=== PATIENT | female | born 1995 | race African-American/Black ===

== ENCOUNTER 2025-01-09 19:40 | Emergency (ER) | payer OTHER ==
--- NOTE | 2025-01-09 20:24 | ED ---
Lower Extremity Injury HPI - General Stated Complaint: 12 Weeks preg, Abd pain Time Seen by Provider: 01/09/25 19:55 Source: patient, RN notes reviewed - History of Present Illness Initial Comments: This is a 29-year-old female, [id number], presenting to the emergency department at 12 weeks gestation for complaint of a fall. Patient states that she was walking outside when she slipped in mud falling onto bilateral knees and onto her abdomen. She is complaining of bilateral knee pain in addition to abdominal pain. She is concerned that she is 12 weeks . She denies vaginal bleeding, hitting her head or loss conscious at the time of the fall. Has not taken any medications since the injury. - Related Data Allergies Allergy/AdvReac Type Severity Reaction Status Date / Time No Known Allergies Allergy Verified 01/09/25 20:24 Review of Systems ROS Statement: Those systems with pertinent positive or pertinent negative responses have been documented in the HPI. ROS Other: All systems not noted in ROS Statement are negative. General Exam General appearance: alert, in no apparent distress ENT exam: Present: normal exam, mucous membranes moist Respiratory exam: Present: normal lung sounds bilaterally. Absent: respiratory distress, wheezes, rales, rhonchi, stridor Cardiovascular Exam: Present: regular rate, normal rhythm, normal heart sounds. Absent: systolic murmur, diastolic murmur, rubs, gallop, clicks GI/Abdominal exam: Present: soft, tenderness (diffuse to deep palpation), normal bowel sounds. Absent: distended, guarding, rebound, rigid Extremities exam: Present: normal inspection, full ROM, normal capillary refill, other (bilateral knee tenderness with mild ecchymosis, no obvious deformity). Absent: tenderness, pedal edema, joint swelling, calf tenderness Back exam: Present: normal inspection Course Vital Signs 01/09/25 20:21 Temperature 99.1 F Pulse Rate 86 Respiratory 18 Rate Blood Pressure 168/73 O2 Sat by Pulse 100 Oximetry Medical Decision Making - Medical Decision Making Was pt. sent in by a medical professional or institution (ARYAN Huerta, [employer] P[employer] SUPERVISOR, urgent care, hospital, or halfway...) When possible be specific @ -No Did you speak to anyone other than the patient for history (EMS, parent, family, police, friend...)? What history was obtained from this source @ -No Did you review nursing and triage notes (agree or disagree)? Why? @ -I reviewed and agree with nursing and triage notes Were old charts reviewed (outside hosp., previous admission, EMS record, old EKG, old radiological studies, urgent care reports/EKG's, halfway records)? Report findings @ -No old charts were reviewed Differential Diagnosis (chest pain, altered mental status, abdominal pain women, abdominal pain men, vaginal bleeding, weakness, fever, dyspnea, syncope, headach e, dizziness, GI bleed, back pain, seizure, CVA, palpatations, mental health, musculoskeletal)? @ -Differential Abdominal Pain Women: Appendicitis, Cholecystitis, diverticulosis, ischemic bowel, pancreatitis, hepatitis, UTI, gastroenteritis, AAA, incarcerated hernia, bowel obstruction, constipation, inflammatory bowel, hepatitis, peptic ulcer disease, splenic infarction, perforated viscus, vulvitis, ovarian torsion, PID, kidney stone, placenta abruption, this is not meant to be an all-inclusive list EKG interpreted by me (3pts min.). @ -None X-rays interpreted by me (1pt min.). @ -X-ray of bilateral knees no acute pathology CT interpreted by me (1pt min.). @ -None done U/S interpreted by me (1pt. min.). @ -Transabdominal ultrasound completed revealing a single live intrauterine gestation with a age of 11 weeks 5 days, heart rate of 143, small subchorionic hemorrhage. What testing was considered but not performed or refused? (CT, X-rays, U/S, labs)? Why? @ -None What meds were considered but not given or refused? Why? @ -None Did you discuss the management of the patient with other professionals (professionals i.e. , PA, [employer] P[employer] SUPERVISOR, lab, RT, psych nurse, administrator social welfare, metal storage worker, teacher, real estate utilization officer, outpatient case manager)? Give summary @ -No Was smoking cessation discussed for >3mins.? @ -No Was critical care preformed (if so, how long)? @ -No Were there social determinants of health that impacted care today? How? (Homelessness, low income, unemployed, alcoholism, drug addiction, transportation, low edu. Level, literacy, decrease access to med. care, halfway, rehab)? @ -No Was there de-escalation of care discussed even if they declined (Discuss DNR or withdrawal of care, Hospice)? DNR status @ -No What co-morbidities impacted this encounter? (DM, HTN, Smoking, COPD, CAD, Cancer, CVA, ARF, Chemo, Hep., AIDS, mental health diagnosis, sleep apnea, morbid obesity)? @ -None Was patient admitted / discharged? Hospital course, mention meds given and route, prescriptions, significant lab abnormalities, going to OR and other pertinent info. @ -Discharge. 29-year-old female presents emergency department after a fall. Overall she is well-appearing in no signs acute distress. Noted to have ecchymosis over bilateral knees with no evidence of deformity. She is weightbearing. Abdominal exam markable for mild tenderness to palpation of deep abdomen. She is read with dose of Tylenol. X-ray is unremarkable. Transabdominal ultrasound remarkable for a intrauterine gestation with a age of 11 weeks 5 days and heart rate of 143. Patient is stable for discharge and supportive treatment discussed at bedside. Case discussed with Dr. Parrish Undiagnosed new problem with uncertain prognosis? @ -No Drug Therapy requiring intensive monitoring for toxicity (Heparin, Nitro, Insulin, Cardizem)? @ -No Were any procedures done? @ -No Diagnosis/symptom? @ -knee ecchymosis, abdominal pain after fall Acute, or Chronic, or Acute on Chronic? @ -acute Uncomplicated (without systemic symptoms) or Complicated (systemic symptoms)? @ -uncomplicated Side effects of treatment? @ -No Exacerbation, Progression, or Severe Exacerbation? @ -No Poses a threat to life or bodily function? How? (Chest pain, [place], [place], pneumonia, PE, COPD, DKA, ARF, appy, cholecystitis, CVA, Diverticulitis, Homicidal, Suicidal, threat to staff... and all critical care pts) @ -No Disposition Clinical Impression: Fall, Ecchymosis Disposition: HOME SELF-CARE Condition: Good Instructions (If sedation given, give patient instructions): Ecchymosis (ED) Additional Instructions: Please return to the Emergency Department if symptoms worsen or any other concerns. Is patient prescribed a controlled substance at d/c from ED?: No Referrals: Nonstaff,Physician [Primary Care Provider] - 1-2 days Time of Disposition: 22:26
[2025-01-09 20:49] VITALS: TEMP 99.1
[2025-01-09] MEDS: ACETAMINOPHEN TAB 325 MG TAB PO STA (21:18)
--- NOTE | 2025-01-09 21:22 | XR ---
EXAMINATION TYPE: XR knee complete bilateral DATE OF EXAM: 01/09/2025 8:58 PM COMPARISON: None CLINICAL INDICATION: Female, 29 years old with history of fall, pain; PHH, pain TECHNIQUE: XR knee complete bilateral 3 views submitted. FINDINGS: No evidence of any acute osseous pathology, soft tissue swelling, or joint effusion is no rachel. IMPRESSION: No acute osseous pathology. [facility], , 01/09/2025 9:20 PM
--- NOTE | 2025-01-09 22:13 | US ---
EXAMINATION TYPE: Transabdominal DATE OF EXAM: 01/09/2025 10:01 PM COMPARISON: NONE CLINICAL INDICATION: Female, 29 years old with history of fall, ab pain, 12 weeks gestation; TECHNIQUE: Transabdominal (TA) with grayscale and color Doppler imaging including first trimester pre gnancy. FINDINGS: EXAM MEASUREMENTS: GESTATIONAL AGE / DATING Physician Established: (12 weeks/0 days) EDC: 07/24/2025 Dates by First Scan: No previous this is first scan Dates by Current Scan for: (11 weeks/5 days) EDC: 07/26/2025 MATERNAL ANATOMY Very limited exam due to pt body habitus Uterus: 11.7x7.9x9.0cm Right Ovary: 2.0x1.3x1.1cm Left Ovary: 3.4x1.5x1.5cm Post CDS / Adnexa: no ff seen Presence of free fluid: no Presence of corpus luteal cyst: n/a Presence of subchorionic bleed: ?Hypoechoic area seen: 3.0x0.8x1.8cm GESTATION / SURVEY CRL: 48.5 (11 weeks/5 days) Gestational Sac morphology: Normal Yolk Sac (normal less than 6mm): not seen at this time Cardiac Activity/Heart Rate: 143 bpm Rhythm: Normal IUP: Viable IUP Date of LMP: 10/17/2024 Beta HcG (if available): Not available at this time IMPRESSION: 1. Single live intrauterine with calculated ultrasound age of 11 weeks 5 days by crown rump length with an estimated date of delivery of 07/26/2025 2. Small subchorionic hemorrhage [facility], , 01/09/2025 10:10 PM
[2025-01-09 22:44] VITALS: BP 116/81; PULSE 78; RESP 16
== END 2025-01-09 22:42 | disposition home or self-care (01) ==
LOC: EC 19:40
DX: O9A.211 Injury, poisoning and certain other consequences of external causes complicating pregnancy, first trimester (principal); S80.01XA Contusion of right knee, initial encounter; Z3A.12 12 weeks gestation of pregnancy; W01.0XXA Fall on same level from slipping, tripping and stumbling without subsequent striking against object, initial encounter; Y93.01 Activity, walking, marching and hiking
CPT/HCPCS: 76801; 99284

== ENCOUNTER 2025-01-15 19:38 | Emergency (ER) | payer OTHER ==
[2025-01-15 19:43] VITALS: TEMP 98.4
--- NOTE | 2025-01-15 19:53 | ED ---
URI HPI - General Chief Complaint: Upper Respiratory Infection Stated Complaint: congestion Time Seen by Provider: 01/15/25 19:53 Source: patient, RN notes reviewed Mode of arrival: ambulatory Limitations: no limitations - History of Present Illness Initial Comments: 29-year-old female presented to ER for evaluation of URI symptoms. Patient states since yesterday she has had a sore throat, cough, congestion, and runny nose. She reports her children have similar complaints. Patient states she is approximately 12 weeks but denies any abdominal pain, back pain, vaginal bleeding or discharge. She has not taken anything for symptoms at this time. Patient denies any fevers, chills, difficulty breathing, wheezing, chest pain, urinary complaints or peripheral edema. No complaints. - Related Data Allergies Allergy/AdvReac Type Severity Reaction Status Date / Time No Known Allergies Allergy Verified 01/15/25 19:42 Review of Systems ROS Statement: Those systems with pertinent positive or pertinent negative responses have been documented in the HPI. ROS Other: All systems not noted in ROS Statement are negative. Past Medical History Past Medical History: Diabetes Mellitus History of Any Multi-Drug Resistant Organisms: None Reported Past Surgical History: Section Past Psychological History: No Psychological Hx Reported Smoking Status: Never smoker Past Alcohol Use History: None Reported Past Drug Use History: None Reported General Exam Limitations: no limitations General appearance: alert, in no apparent distress ENT exam: Present: normal exam, normal oropharynx, mucous membranes moist, TM's normal bilaterally Neck exam: Present: normal inspection. Absent: tenderness, meningismus, ly mphadenopathy Respiratory exam: Present: normal lung sounds bilaterally. Absent: respiratory distress, wheezes, rales, rhonchi, stridor Cardiovascular Exam: Present: regular rate, normal rhythm, normal heart sounds. Absent: systolic murmur, diastolic murmur, rubs, gallop, clicks GI/Abdominal exam: Present: soft, normal bowel sounds. Absent: distended, tenderness, guarding, rebound, rigid Extremities exam: Present: normal inspection, full ROM, normal capillary refill. Absent: tenderness, pedal edema, joint swelling, calf tenderness Neurological exam: Present: alert, oriented X3, CN II-XII intact Skin exam: Present: warm, dry, intact, normal color. Absent: rash Course Vital Signs 01/15/25 01/15/25 01/15/25 19:40 19:49 23:40 Temperature 98.4 F Pulse Rate 88 85 Respiratory 18 18 20 Rate Blood Pressure 131/84 128/83 O2 Sat by Pulse 100 100 Oximetry Medical Decision Making - Medical Decision Making Was pt. sent in by a medical professional or institution (ARYAN Huerta, TEMP RECRUITER, urgent care, hospital, or [facility]...) When possible be specific @ -No Did you speak to anyone other than the patient for history (EMS, parent, family, police, friend...)? What history was obtained from this source @ -No Did you review nursing and triage notes (agree or disagree)? Why? @ -I reviewed and agree with nursing and triage notes Were old charts reviewed (outside hosp., previous admission, EMS record, old EKG, old radiological studies, urgent care reports/EKG's, [facility] records)? Report findings @ -No old charts were reviewed Differential Diagnosis (chest pain, altered mental status, abdominal pain women, abdominal pain men, vaginal bleeding, weakness, fever, dyspnea, syncope, headache, dizziness, GI bleed, back pain, seizure, CVA, palpatations, mental health, musculoskeletal)? @ - COVID, RSV, influenza, viral sinusitis, pneumonia, strep pharyngitis, this list is not meant to be all-inclusive EKG interpreted by me (3pts min.). @ - None done X-rays interpreted by me (1pt min.). @ -None done CT interpreted by me (1pt min.). @ -None done U/S interpreted by me (1pt. min.). @ -None done What testing was considered but not performed or refused? (CT, X-rays, U/S, labs)? Why? @ -CXR considered but not performed given patient's status. Bilateral lung sounds clear throughout. Patient is agreeable. What meds were considered but not given or refused? Why? @ -None Did you discuss the management of the patient with other professionals (professionals i.e. ARYAN Huerta, TEMP RECRUITER, lab, RT, psych nurse, social service director, rn endoscopy, teacher, correctional probation officer, pillowcase turner)? Give summary @ -No Was smoking cessation discussed for >3mins.? @ -No Was critical care preformed (if so, how long)? @ -No Were there social determinants of health that impacted care today? How? (Homelessness, low income, unemployed, alcoholism, drug addiction, transportation, low edu. Level, literacy, decrease access to med. care, shelter, rehab)? @ -No Was there de-escalation of care discussed even if they declined (Discuss DNR or withdrawal of care, Hospice)? DNR status @ -No What co-morbidities impacted this encounter? (DM, HTN, Smoking, COPD, CAD, Cancer, CVA, ARF, Chemo, Hep., AIDS, mental health diagnosis, sleep apnea, morbid obesity)? @ - Was patient admitted / discharged? Hospital course, mention meds given and route, prescriptions, significant lab abnormalities, going to OR and other pertinent info. @ -Discharge. 29-year-old female presented to the ER for evaluation of URI symptoms. Vitals within acceptable limits. Patient in no signs of acute distress nontoxic-appearing. Influenza, RSV, COVID and strep negative. Patient given symptomatic treatment in the ER with Tylenol. heart tones unable to be heard with Doppler for which ultrasound was obtained showing a heart rate of 161 bpm. Symptoms likely viral in nature. I advised patient to continue taking Tylenol for symptom control outpatient and follow-up closely with ENVIRONMENTAL SERVICE AIDE, referral given. Strict return parameters discussed. Patient discharged in stable condition. Patient verbally expressed understanding agreement with care plan. Case discussed with ED attending, . Undiagnosed new problem with uncertain prognosis? @ -No Drug Therapy requiring intensive monitoring for toxicity (Heparin, Nitro, Insulin, Cardizem)? @ -No Were any procedures done? @ -No Diagnosis/symptom? @ - Viral illness/Acute viral sinusitis Acute, or Chronic, or Acute on Chronic? @ -Acute Uncomplicated (without systemic symptoms) or Complicated (systemic symptoms)? @ -Uncomplicated Side effects of treatment? @ -No Exacerbation, Progression, or Severe Exacerbation? @ -No Poses a threat to life or bodily function? How? (Chest pain, [place], [place], pneumonia, PE, COPD, DKA, ARF, appy, cholecystitis, CVA, Diverticulitis, Homicidal, Suicidal, threat to staff... and all critical care pts) @ -No - Lab Data Lab Results 01/15/25 01/15/25 01/15/25 Range/Units 20:04 20:04 22:08 HCG, Quant 62407.8 mIU/mL Influenza Type A (PCR) Not Detected (Not Detectd) Influenza Type B (PCR) Not Detected (Not Detectd) RSV (PCR) Not Detected (Not Detectd) SARS-CoV-2 (PCR) Not Detected (Not Detectd) Group A Strep (PCR) NOT DETECTED (Not Detectd) Disposition Clinical Impression: Viral illness, Acute viral sinusitis Disposition: HOME SELF-CARE Condition: Stable Additional Instructions: You may take [id number] Tylenol. I recommend saline nasal rinse as well. Follow-up closely with ENVIRONMENTAL SERVICE AIDE. Return to the ER for any new or worsening concerns. Is patient prescribed a controlled substance at d/c from ED?: No Referrals: Nonstaff,Physician [Primary Care Provider] - 1-2 days Ashlie Christianson DO [Doctor of Osteopathic Medicine] - 1-2 days Time of Disposition: 23:21
[2025-01-15] MEDS: ACETAMINOPHEN TAB 325 MG TAB PO STA (20:02)
[2025-01-15 21:03] LABS: Influenza A Not Detected (Not Detectd); Influenza B Not Detected (Not Detectd); RSV Not Detected (Not Detectd)
--- NOTE | 2025-01-15 23:17 | US ---
EXAM: US , Limited CLINICAL HISTORY: ITS.REASON US Reason: heart tones TECHNIQUE: Real-time limited ultrasound of the maternal uterus with image documentation. COMPARISON: OB ultrasound, and 01/09/2025 FINDINGS/ IMPRESSION: Single intrauterine with heart rate of 161 bpm.
[2025-01-16 00:07] VITALS: BP 128/83; PULSE 85; RESP 20
== END 2025-01-15 23:40 | disposition home or self-care (01) ==
LOC: EC 19:38
DX: O98.511 Other viral diseases complicating pregnancy, first trimester (principal); J01.90 Acute sinusitis, unspecified; B97.89 Other viral agents as the cause of diseases classified elsewhere; Z3A.12 12 weeks gestation of pregnancy
CPT/HCPCS: 36415; 76815; 84702; 87636; 87651; 99284